=== PATIENT | male | born 1975 | race Caucasian/White ===

== ENCOUNTER 2024-07-16 19:13 | Inpatient (IN) | payer MEDICAID, SELFPAY ==
[2024-07-16 19:26] VITALS: BP 133/71; PULSE 73; RESP 20; TEMP 36.6; O2SAT 97; BMI 27.3
--- NOTE | 2024-07-16 19:27 | ED.C_ITS ---
HPI - Psych 2 General: Chief Complaint: Psychiatric Symptoms Stated Complaint: SI Time Seen by Provider: 07/16/24 19:14 Source: patient and EMS Mode of arrival: EMS Limitations: no limitations History of Present Illness: 48-year-old male states he has been havi ng suicidal ideations he says he has a history of PTSD along with depression states over the last 5 to 6 days he has had severe thoughts of suicide. Denies any specific plan denies any worse improving factors. Has had previous admissions before Associated symptoms: Reports depression and suicidal ideation Review of Systems 2 Const: Denies: fever(s), chills, body aches or change in appetite ENMT: Denies: throat pain or dental pain Card: Denies: chest pain Resp: Denies: dyspnea GI: Denies: abdominal pain, nausea, vomiting or diarrhea Musc: Denies: neck pain or back pain Skin/Breast: Denies: rash Neuro: Denies: headache(s) Psych: Reports: depression and suicidal ideation Physical Exam 2 Const: COMMON NORMALS: no acute distress, patient oriented x3 and healthy appearing HENMT: COMMON NORMALS: normocephalic and atraumatic HEAD & SCALP: n ormocephalic and atraumatic Eye: COMMON NORMALS: Equal, round and reactive pupils present and EOMs intact bilaterally PUPIL: Yes Equal, round and reactive pupils present Neck/C-Spine: COMMON NORMALS: full ROM and supple Chest: COMMONS NORMALS: normal inspection of the chest Resp: COMMON NORMALS: normal respiratory effort Cardio: COMMON NORMALS: regular rate RATE: regular rate Extremity: COMMON NORMALS: normal to inspection and full ROM Neuro: COMMON NORMALS: patient oriented x3, moves all extremities and no focal motor deficits Psych: COMMON NORMALS: mental status grossly normal, Normal thought process present and cooperative THOUGHT PROCESS: Normal thought process present Skin: COMMON NORMALS: no rashes or lesions noted and no wounds GENERAL SKIN EXAM: no rashes or lesions noted Course 2 Vital Signs: Vital signs: Vital Signs Temperature 98 F 07/16/24 19:26 Pulse Rate 73 07/16/24 19:26 Respiratory Rate 20 H 07/16/24 19:26 Blood Pressure 133/71 07/16/24 19:26 Pulse Oximetry 97 07/16/24 19:26 MDM - Psych Medical Decision Making Patient presents here with suicidal ideations he is medically cleared he is placed under 96-hour hold I spoke to psychiatrist will admit at this time. Medical Records I reviewed the patient's medical records. Lab Data I reviewed the patient's lab results. 07/16/24 19:32 07/16/24 19:32 Laboratory Results WBC 8.46 10^3/uL (3.29-11.43) 07/16/24 19: RBC 5.24 10^6/uL (3.85-5.65) 07/16/24 19: Hgb 15.40 g/dL (11.27-16.99) 07/16/24 19: Hct 44.9 % (37-53) 07/16/24 19: MCV 85.7 fl (82-101) 07/16/24 19: MCH 29.4 pg (27-33) 07/16/24 19: MCHC 34.3 g/dL (30-55) 07/16/24 19: RDW 12.9 % (12.1-15.1) 07/16/24: Plt Count 203 10^3/cmm (157-399) 07/16/24 19: MPV 11.5 fL (7.4-10.4) H 07/16/24 19: Neut % (Auto) 58.0 % 07/16/24: Lymph % (Auto) 25.3 % 07/16/24: Mcculloch % (Auto) 10.5 % 07/16/24: Eos % (Auto) 5.0 % 07/16/24: Baso % (Auto) 0.7 % 07/16/24: Neut # (Auto) 4.91 10^3/uL (1.8-7.7) 07/16/24: Lymph # (Auto) 2.1 10^3/uL (0.8-4.8) 07/16/24: Mcculloch # (Auto) 0.9 10^3/uL (0.2-0.9) 07/16/24 19: Eos # (Auto) 0.4 10^3/uL (0.0-0.8) 07/16/24: Baso # (Auto) 0.1 10^3/uL (0.0-0.1) 07/16/24 19:32 Nucleated RBC % (auto) 0 % 07/16/24 19: Nucleated RBCs # 0.0 /100WBC 07/16/24 19:32 Sodium 137 mmol/L (136-145) 07/16/24 19:32 Potassium 3.4 mmol/L (3.5-5.1) L 07/16/24 19:32 Chloride 102 mmol/L (98-107) 07/16/24: Carbon Dioxide 21 mmol/L (22-29) L 07/16/24 19:32 Anion Gap 17.4 (5-19) 07/16/24 19:32 BUN 19 mg/dL (6-20) 07/16/24 19: Creatinine 0.9 mg/dL (0.7-1.2) 07/16/24 19:32 GFR Calculation 90.8 mL/min (90-130) 07/16/24 19: Glucose 115 mg/dL (65-115) 07/16/24 19:32 Calculated Osmolality 287 mOsm/kg (285-295) 07/16/24 19:32 Calcium 9.5 mg/dL (8.5-10.5) 07/16/24: Total Bilirubin 0.9 mg/dL (0.15-1.2) 07/16/24 19:32 AST 28 U/L (0-40) 07/16/24 19:32 ALT 22 U/L (0-41) 07/16/24 19:32 Alkaline Phosphatase 66 U/L (40-130) 07/16/24 19:32 Total Protein 6.3 g/dL (6.6-8.7) L 07/16/24 19:32 Albumin 4.1 g/dL (3.5-5.2) 07/16/24 19: Globulin 2.2 g/dL (1.3-4.6) 07/16/24 19:32 Salicylates 1.3 mg/dL (3-10) L 07/16/24 19:32 Urine Opiates Screen Negative ng/mL (Negative) 07/16/24 19: Acetaminophen < 5.0 ug/mL (10-30) L 07/16/24 19: Ur Barbiturates Screen Negative ng/mL (Negative) 07/16/24 19:23 Ur Phencyclidine Scrn Negative ng/mL (Negative) 07/16/24 19:23 Ur Amphetamines Screen Negative ng/mL (Negative) 07/16/24 19:23 U Benzodiazepines Scrn Negative ng/mL (Negative) 07/16/24 19:23 Urine Cocaine Screen Negative ng/mL (Negative) 07/16/24 19:23 U Marijuana (THC) Screen Negative ng/mL (Negative) 07/16/24 19:23 Ethyl Alcohol < 10 mg/dL (0-10) 07/16/24 19:32 No radiology studies performed this visit Discharge Plan Discharge Patient Disposition: Admitted As Inpatient Clinical Impression: Suicidal ideation Condition: Stable Coding Level of Care Code ED On Site Soil Evaluator for Jensen Vogel
--- NOTE | 2024-07-16 20:06 | PC.NURSE ---
96 Hour hold Education provided to patient regarding being placed on a 96 hour hold. Rights read to patient and copy of rights left at bedside. When asked if patient had any questions, patient shook his head no and verbalized understanding.
[2024-07-16 20:10] LABS: Basophils # 0.1 10^3/uL (0.0-0.1); Basophils % 0.7 %; Eosinophils # 0.4 10^3/uL (0.0-0.8); Hematocrit 44.9 % (37-53); Lymphocytes # 2.1 10^3/uL (0.8-4.8); Lymphocytes % 25.3 %; Mean Corpuscular HGB Conc 34.3 g/dL (30-55); Mean Corpuscular Hemoglobin 29.4 pg (27-33); Mean Corpuscular Volume 85.7 fl (82-101); Mean Platelet Volume 11.5 fL (7.4-10.4); Monocytes # 0.9 10^3/uL (0.2-0.9); Monocytes % 10.5 %; Neutrophils # 4.91 10^3/uL (1.8-7.7); Nucleated Red Blood Cells % 0 %; Platelet Count 203 10^3/cmm (157-399); Red Blood Count 5.24 10^6/uL (3.85-5.65); Red Cell Distribution Width 12.9 % (12.1-15.1); White Blood Count 8.46 10^3/uL (3.29-11.43)
[2024-07-16 20:21] LABS: Amphetamines Screen Urine Negative (Negative); Barbiturates Screen Urine Negative (Negative); Benzodiazepines Screen Urine Negative (Negative); Cocaine Screen Urine Negative (Negative); Opiate Screen Urine Negative (Negative); PCP Screen Urine Negative (Negative); THC Screen Urine Negative (Negative)
[2024-07-16 20:25] LABS: Alanine Aminotransferase 22 U/L (0-41); Albumin Level 4.1 g/dL (3.5-5.2); Alkaline Phosphatase 66 U/L (40-130); Anion Gap 17.4 (5-19); Aspartate Amino Transferase 28 U/L (0-40); Blood Urea Nitrogen 19 mg/dL (6-20); Calcium 9.5 mg/dL (8.5-10.5); Carbon Dioxide 21 mmol/L (22-29); Chloride 102 mmol/L (98-107); Creatinine Clr Calc Pharmacy 106.9088; Globulin 2.2 g/dL (1.3-4.6); Glomerular Filtration Rate 90.8 mL/min (90-130); Glucose 115 mg/dL (65-115); Osmolality Calculated 287 mOsm/kg (285-295); Potassium 3.4 mmol/L (3.5-5.1); Salicylate 1.3 mg/dL (3-10); Sodium 137 mmol/L (136-145); Total Bilirubin 0.9 mg/dL (0.15-1.2); Total Protein 6.3 g/dL (6.6-8.7)
[2024-07-16 20:26] LABS: Acetaminophen < 5.0 ug/mL (10-30); Alcohol Level < 10 mg/dL (0-10)
[2024-07-16 22:49] VITALS: BP 124/92; PULSE 71; RESP 18; TEMP 36.6; O2SAT 97
[2024-07-16 22:55] VITALS: BP 126/81; PULSE 70; RESP 14; O2SAT 96
[2024-07-17 06:00] VITALS: BP 135/86; PULSE 74; RESP 18; TEMP 36.5; O2SAT 97; BMI 27.3
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
[2024-07-17 14:00] VITALS: BP 137/86; PULSE 72; RESP 18; TEMP 37.1; O2SAT 98
[2024-07-17] MEDS: sertraline 50 mg Tablet 25 MG PO (14:57)
[2024-07-17] MEDS: diazePAM 5 mg Tablet PO (17:20)
[2024-07-17] MEDS: trazodone 50 mg Tablet PO (20:21)
[2024-07-17 22:00] VITALS: BP 137/97; PULSE 60; RESP 18; TEMP 36.4; O2SAT 100
[2024-07-18 06:00] VITALS: BP 100/62; PULSE 92; RESP 16; TEMP 36.7; O2SAT 98
[2024-07-18] MEDS: diazePAM 5 mg Tablet PO ×3 (08:26→20:18)
[2024-07-18] MEDS: sertraline 50 mg Tablet 25 MG PO (08:26)
[2024-07-18 14:00] VITALS: BP 142/88; PULSE 52; RESP 16; TEMP 36.3; O2SAT 100
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
[2024-07-18 19:39] VITALS: BP 121/83; PULSE 60; RESP 18; TEMP 36.4; O2SAT 98
[2024-07-19 06:00] VITALS: BP 110/74; PULSE 67; RESP 18; TEMP 36.4; O2SAT 98
[2024-07-19] MEDS: sertraline 50 mg Tablet PO (08:20)
[2024-07-19] MEDS: diazePAM 5 mg Tablet PO ×3 (08:20→20:51)
[2024-07-19 14:00] VITALS: BP 146/95; PULSE 66; RESP 16; TEMP 36.3; O2SAT 100
--- NOTE | 2024-07-19 16:02 | P.NPUPN_ITS ---
Subjective NPU 2 Subjective: 48-year-old male with a history of PTSD and depression admitted with suicidal ideation. Patient had reported no panic attacks yesterday with the initiation of Valium. He had reported some difficulties with falling asleep. He continued to endorse depressed mood and a sense of hopelessness. He reported that he continued to feel anxious and social situations. He was able to attend groups without communicating much but reported extreme anxiety and that situation yesterday. He had reported having few social supports and had reported no history of intensive outpatient services at all for his PTSD. Mental Status Exam 2 MSE Comments: The patient is a casually dressed healthy white male who appeared his stated age with normal gait. He was alert and oriented to person, place ,time, and situation. There was no evidence of any abnormal involuntary motor movements, tics, or tremors appreciated. There was prominent psychomotor retardation. His speech was monotone in quality with normal rate and volume. His thought process was linear logical and goal-directed. His thought content showed evidence of suicidal ideation with a plan to jump off of a bridge. He denied any homicidal ideation. There was no evidence of delusional thinking. There was no evidence of paranoia. He did not appear to be responding to internal stimuli. He appeared somewhat hypervigilant on interview. His mood was described as depressed. His affect remained flat. His recent and remote memory appeared grossly intact. His insight is poor. His judgment is poor. His impulse control appeared limited. Vitals/I&O/Wt Last Vital Signs Temp 97.4 F L 07/19/24 14:00 Pulse 66 07/19/24 14:00 Resp 16 07/19/24 14:00 BP 146/95 07/19/24 14:00 Pulse Ox 100 07/19/24 14:00 O2 Del Method Room Air 07/19/24 06:00 Data NPU 07/16/24 19:32 07/16/24 19:32 A&P Assessment and plan (1) MDD (major depressive disorder), recurrent severe, without psychosis: (2) PTSD (post-traumatic stress disorder): (3) Suicidal ideation: (4) Panic attacks: Plan 48-year-old male admitted with history of PTSD, major depressive disorder, and panic attacks previously on Valium and an SSRI admitted with active suicidal ideation with a plan to jump off a bridge. #1.? Engage patient in individual milieu and group therapy. #2?? Recommend sober living treatment at the highest level of care to which the patient is willing to commit #3???Continue zoloft 50mg daily and valium 5mg tid. Add seroquel 50mg at night. #4?? TO-15 minute checks? #5?? Will attempt to gather collateral information Involuntary Hold Information 2 96 Hour Hold: 96 Hour Involuntary Admission: Yes 96 Hour Hold Ending Date: 07/25/24 96 Hour Hold Ending Time: 00:01 Other Hold: Hold End Date: 07/25/24 Attestations NPU 2 Medical Necessity Statement*: Inpatient hospitalization is medically necessary and deemed to ?be ?the clinically appropriate intervention ?at this time.? We will monitor/initiate medications and make changes as indicated.? ? The patient?s likely length of stay 5-7 days. Coding Level of Care Code Acute Code for g Fwd Diagnoses MDD (major depressive disorder), recurrent severe, without psychosis F33.2 PTSD (post-traumatic stress disorder) F43.10 Suicidal ideation R45.851 Panic attacks F41.0
[2024-07-19 20:03] VITALS: BP 129/89; PULSE 77; RESP 16; TEMP 36.4; O2SAT 96
[2024-07-19] MEDS: quetiapine 25 mg Tablet 50 MG PO (20:51)
[2024-07-20 06:00] VITALS: BP 124/76; PULSE 70; RESP 17; TEMP 36.6; O2SAT 98
[2024-07-20] MEDS: diazePAM 5 mg Tablet PO ×3 (08:23→20:21)
[2024-07-20] MEDS: sertraline 50 mg Tablet PO (08:23)
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
[2024-07-20 14:00] VITALS: BP 132/83; PULSE 75; RESP 17; TEMP 36.3; O2SAT 98
[2024-07-20] MEDS: quetiapine 25 mg Tablet 50 MG PO (20:21)
[2024-07-20 21:55] VITALS: BP 110/67; PULSE 82; RESP 17; TEMP 36.7; O2SAT 98
[2024-07-21 06:00] VITALS: BP 105/71; PULSE 71; RESP 18; TEMP 36.6; O2SAT 97
[2024-07-21] MEDS: sertraline 50 mg Tablet PO (07:56)
[2024-07-21] MEDS: diazePAM 5 mg Tablet PO ×3 (07:57→20:06)
[2024-07-21 14:00] VITALS: BP 126/82; PULSE 72; RESP 18; TEMP 36.3; O2SAT 97
--- NOTE | 2024-07-21 14:19 | P.NPUPN_ITS ---
Subjective NPU 2 Subjective: 48-year-old male with a history of PTSD and depression admitted with suicidal ideation. Patient had reported feeling better. He had reported some improvement in nightmares and sleep. He had continued to endorse feeling depressed. He had expressed optimism with starting therapy back in [place] when discharged. He had been able to attend groups but remained somewhat quiet. He had reported no panic attacks since the reinitiation of Valium. He denied any psychotic symptoms. He endorsed struggles with low motivation and low energy. He had reported the flashbacks had been less intense and frequent. Mental Status Exam 2 MSE Comments: The patient is a casually dressed healthy white male who appeared his stated age with normal gait. He was alert and oriented to person, place ,time, and situation. There was no evidence of any abnormal involuntary motor movements, tics, or tremors appreciated. There was mild psychomotor retardation. His speech was monotone in quality with normal rate and volume. His thought process was linear logical and goal-directed. His thought content showed evidence of suicidal ideation with no plan at this time. He denied any homicidal ideation. There was no evidence of delusional thinking. There was no evidence of paranoia. He did not appear to be responding to internal stimuli. He appeared mildly hypervigilant. His mood was described as a little better. His affect was restricted. His recent and remote memory appeared grossly intact. His insight is poor. His judgment is poor. His impulse control appeared better. Vitals/I&O/Wt Last Vital Signs Temp 97.9 F 07/21/24 06:00 Pulse 71 07/21/24 06:00 Resp 18 07/21/24 06:00 BP 105/71 07/21/24 06:00 Pulse Ox 97 07/21/24 06:00 O2 Del Method Room Air 07/21/24 06:00 Data NPU 07/16/24 19:32 07/16/24 19:32 A&P Assessment and plan (1) MDD (major depressive disorder), recurrent severe, without psychosis: (2) PTSD (post-traumatic stress disorder): (3) Suicidal ideation: (4) Panic attacks: Plan 48-year-old male admitted with history of PTSD, major depressive disorder, and panic attacks previously on Valium and an SSRI admitted with active suicidal ideation with a plan to jump off a bridge. #1.? Engage patient in individual milieu and group therapy. #2?? Recommend sober living treatment at the highest level of care to which the patient is willing to commit #3???Continue zoloft 50mg daily and valium 5mg tid. Increase seroquel to 100mg at night. #4?? TO-15 minute checks? #5?? Will attempt to gather collateral information Involuntary Hold Information 2 96 Hour Hold: 96 Hour Involuntary Admission: Yes 96 Hour Hold Ending Date: 07/25/24 96 Hour Hold Ending Time: 00:01 Other Hold: Hold End Date: 07/25/24 Attestations NPU 2 Medical Necessity Statement*: Inpatient hospitalization is medically necessary and deemed to ?be ?the clinically appropriate intervention ?at this time.? We will monitor/initiate medications and make changes as indicated.? ? The patient?s likely length of stay 2-3days. Coding Level of Care Code Acute Code for g Fwd Diagnoses MDD (major depressive disorder), recurrent severe, without psychosis F33.2 PTSD (post-traumatic stress disorder) F43.10 Suicidal ideation R45.851 Panic attacks F41.0
[2024-07-21 20:06] VITALS: BP 137/78; PULSE 78; RESP 18; TEMP 36.7; O2SAT 98
[2024-07-21] MEDS: quetiapine 25 mg Tablet 100 MG PO (20:06)
[2024-07-22 06:00] VITALS: BP 92/52; PULSE 70; RESP 16; TEMP 36.3; O2SAT 96
[2024-07-22 08:02] VITALS: BP 92/52; PULSE 70; RESP 16; TEMP 36.3; O2SAT 96
[2024-07-22] MEDS: sertraline 50 mg Tablet PO (08:26)
[2024-07-22] MEDS: diazePAM 5 mg Tablet PO (08:26)
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
== END 2024-07-22 10:26 | disposition home or self-care (01) | DRG 885 ==
LOC: ER 20:54 → NP 21:00
PROVIDERS: Admitting Provider Psychiatry & Neurology Psychiatry; Emergency Provider Emergency Medicine; Visit Provider Psychiatry & Neurology Psychiatry
DX: F33.2 Major depressive disorder, recurrent severe without psychotic features (principal); R45.851 Suicidal ideations; F43.10 Post-traumatic stress disorder, unspecified; F41.0 Panic disorder [episodic paroxysmal anxiety]; R45.84 Anhedonia
CPT/HCPCS: 36415; 80053; 80306; 80307; 85025; 97150; 97165; 99285